=== PATIENT | male | born 1980 | race Caucasian/White ===

== ENCOUNTER → 2017-04-05 | Outpatient (CLI) | payer OTHER ==
--- NOTE | 2017-04-07 09:26 | RAD ---
HISTORY: Dyspnea. Study: Two views chest. Comparison: None. Findings: The trachea is midline. The cardiac silhouette is unremarkable. The lungs are clear without focal i nfiltrate or effusion. The bony thorax is unremarkable. IMPRESSION: 1. No acute cardiopulmonary disease. Reported By:
== END ==
LOC: RAD 14:21
PROVIDERS: ATTEND Nurse Practitioner Family
DX: R06.02 Shortness of breath (principal)
CPT/HCPCS: 71020

== ENCOUNTER → 2017-07-31 | Outpatient (CLI) | payer OTHER ==
--- NOTE | 2017-07-31 12:34 | CT ---
Indication: Sinusitis and allergic rhinitis Exam: CT sinuses without contrast. Technique: Axial spiral images were obtained from the level above the frontal sinuses through the max illa with coronal and sagittal multiplanar reconstructions. Automated does control was utilized. Findings: The frontal sinuses are clear . There is mild mucosal thickening along the base of the fron vera sinuses extending into the ethmoid air cells . There is minimal mucosal thickening along the base of both maxillary sinuses. The sphenoid sinuses are clear. There are no air-fluid levels. The bones are intact. The IAC's are symmetric. There is moderate nasal septal deviation to the left . 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 The nasopharynx i s unremarkable. 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 Reported By:
== END | disposition home or self-care (01) | DRG 153 ==
LOC: RAD 11:19
PROVIDERS: ATTEND Internal Medicine
DX: J30.89 Other allergic rhinitis (principal); J01.80 Other acute sinusitis; J32.8 Other chronic sinusitis
CPT/HCPCS: 70486